=== PATIENT | male | born 1975 | race Caucasian/White ===

== ENCOUNTER 2019-06-06 11:39 | Emergency (ER) | payer MEDICAID, OTHER ==
[~2019-06-06] VITALS: Ht 170.2 cm; Wt 90.7 kg
[2019-06-06 11:57] VITALS: BP 123/72
--- NOTE | 2019-06-06 13:00 | NUR ---
PT PLACED IN BED 1.
--- NOTE | 2019-06-06 13:01 | NUR ---
Dr. Dhillon is evaluating the patient at bedside.
--- NOTE | 2019-06-06 13:30 | NUR ---
PT PRESENTS TO ED WITH C/O PRODUCITIVE COUGH X 2 WEEKS. PT REPORTS TAKING OTC COUGH MEDICINE WITH NO RELIEF. PT STATES THAT HIS HEAD AND SHOULDER HURT AND STATES THE PAIN IS THROBBING, PT RATES PAIN 10/10 AT THIS TIME. LUNGS CLEAR BILATERALLY. PT REPORTS DIARRHEA X 1 DAY. BOWEL SOUNDS ACTIVE IN ALL QUADRANTS. PT DENIES FEVER, N/V, CP, AND SOB AT THIS TIME. PT POSITIONED FOR COMFORT. BED RAIL UP X 1. ER MD AWARE OF PT STATUS. LÓPEZ
--- NOTE | 2019-06-06 13:40 | NUR ---
Patient being evaluated by DR DAWSON at bedside.
[2019-06-06 14:27] VITALS: BP 123/72
--- NOTE | 2019-06-06 14:27 | NUR ---
Patient discharged with v/s stable. Written and verbal after care instructions given and explained. Patient alert, oriented and verbalized understanding of instructions. Ambulatory with steady gait. All questions addressed prior to discharge. ID band removed. Patient advised to follow up with PMD. Rx of CODEINE/GUAIFENSIN, ALBUTEROL given. Patient educated on indication of medication including possible reaction and side effects. Opportunity to ask questions provided and answered.
== END 2019-06-06 14:11 | disposition home or self-care (01) ==
LOC: MED 11:39
DX: B34.9 Viral infection, unspecified (principal)
CPT/HCPCS: 71046; 99283